=== PATIENT | female | born 1965 | race Caucasian/White ===

== ENCOUNTER 2021-07-13 17:54 | Emergency (ER) | payer OTHER, BC, SELFPAY ==
[2021-07-13 18:06] VITALS: BP 175/89; PULSE 99; RESP 18; TEMP 37.1; O2SAT 100
--- NOTE | 2021-07-13 18:51 | ED.WOUNDLAC ---
HPI - Wound/Laceration General Chief Complaint: Wound/Laceration Stated Complaint: head injury/laceration Time Seen by Provider: 07/13/21 18:37 Source: patient Mode of arrival: ambulatory Limitations: no limitations History of Present Illness HPI narrative: This is a 56-year-old female that presents to the emergency department for a laceration to the scalp sustained just prior to arrival. Reports that a hub cap fell and hit her head at work. Reports laceration to the area. She is not up-to-date on tetanus, but reports that she is allergic to the vaccination. Denies loss of consciousness, vision changes, vomiting, numbness, or weakness. Related Data Allergies Allergy/AdvReac Type Severity Reaction Status Date / Time cefuroxime [From Ceftin] Allergy Unknown Rash Verified 07/13/21 19:14 niacin Allergy Unknown Itching Verified 07/13/21 19:14 [From Niaspan Extended-Release] sulfamethoxazole Allergy Unknown Rash Verified 07/13/21 19:14 [From Septra] Tetanus Vaccines and Toxoid Allergy Unknown Rash Verified 07/13/21 19:14 trimethoprim [From Septra] Allergy Unknown Rash Verified 07/13/21 19:14 Review of Systems Review of Systems: CONSTITUTIONAL: Denies fever SKIN: Reports laceration All systems reviewed & are unremarkable except as noted in HPI and below PMFSH Past Medical History Medical History (Updated 07/13/21 @ 19:48 by Aby Clark PA-C) History of fibromyalgia History of gastroesophageal reflux (GERD) History of hyperlipidemia History of hypertension Social History Social History (Updated 07/13/21 @ 18:56 by Aby Clark PA-C) Substance use: never Exam Narrative: GENERAL: Well-appearing, well-nourished, and in no acute distress. HEAD: Normocephalic. 3 cm linear laceration into subcutaneous tissue over the scalp EYES: PERRLA and EOMI. ENT: Nares clear, no rhinorrhea or epistaxis. Mucous membranes moist. Oropharynx without tonsillar hypertrophy exudate or other lesions. Bilateral TMs pearly staley non-bulging NECK: Supple. No adenopathy or masses. CHEST: Clear to auscultation. No respiratory distress. No wheezes rales or rhonchi HEART: Regular rate and rhythm. No murmur heard. Normal peripheral pulses. EXTREMITIES: Normal range of motion. No edema. Strength equal in bilateral upper extremities (5/5) SKIN: Warm, dry, no rash. NEURO: No focal deficits. Alert and oriented x3. Cranial nerves II through XII grossly intact PSYCH: Normal mood and affect Course Vital Signs Vital signs: Vital Signs Temperature 98.7 F 07/13/21 18:06 Pulse Rate 99 07/13/21 18:06 Respiratory Rate 18 07/13/21 18:06 Blood Pressure 175/89 H 07/13/21 18:06 Pulse Oximetry 100 07/13/21 18:06 Temperature 98.7 F 07/13/21 18:06 Pulse Rate 99 07/13/21 18:06 Respiratory Rate 18 07/13/21 18:06 Blood Pressure 175/89 H 07/13/21 18:06 Pulse Oximetry 100 07/13/21 18:06 Procedures Laceration Laceration 1: Date: 07/13/21 Time: 19:45 Site: scalp Size (cm): 3 Description: linear Depth: simple, single layer Local Anesthetic: lidocaine 1% and with epi Amount of anesthesia used (mL): 2 Pre-repair: irrigated ====== Skin Level ====== Skin layer closed with: amanda Number of sutures: 4 ====== Subcutaneous Layer ====== ====== Muscle Layer ====== ====== Tendon Layer ====== MDM - Wound/Laceration MDM Narrative Medical decision making narrative: Patient presents to the emergency department for a laceration to the scalp. A hub cap had fallen on her head at work. She denies any loss of consciousness. No vision changes, vomiting or numbness. She is neurologically intact. She is not up-to-date on tetanus, but reports that she is allergic to this vaccination and will not receive it. Her wound was irrigated and closed with amanda. She was educated on wound care. She is to follow-up with her primary
[2021-07-13] MEDS: ACETAMINOPHEN 500 MG TABLET 1000 MG PO (19:19)
--- NOTE | 2021-07-13 19:24 | PC.NURSE ---
Pt in ED 19. Reports a wheel hub fell on her while she was reaching for it at work - works at [employer]. denies loc. 3-4 cm lac to left upper head. well approximated. bleeding controlled with gauze and pt currently holding pressure. a/o x 4. no neuro deficits. son present in room c pt.
== END 2021-07-13 20:14 | disposition home or self-care (01) ==
PROVIDERS: Emergency Provider Emergency Medicine
DX: S01.01XA Laceration without foreign body of scalp, initial encounter (principal); M79.7 Fibromyalgia; K21.9 Gastro-esophageal reflux disease without esophagitis; E78.5 Hyperlipidemia, unspecified; I10 Essential (primary) hypertension; W20.8XXA Other cause of strike by thrown, projected or falling object, initial encounter
CPT/HCPCS: 12002; 99282; A9270